=== PATIENT | male | born 1975 | race African-American/Black ===

== ENCOUNTER → 2017-12-24 | Outpatient (REF) | payer OTHER ==
[2017-12-24 19:49] LABS: BACTERIA, URINE AUTO NEGATIVE (NEGATIVE); MUCUS, URINE SMALL (NEGATIVE); RBC, URINE AUTO 1 /HPF (0-3); SQUAMOUS EPITHELIAL CELL UR AU 0 /HPF (0-6); WBC, URINE AUTO 0 /HPF (0-3)
== END ==
LOC: M SMT 17:03
DX: N52.9 Male erectile dysfunction, unspecified (principal)
CPT/HCPCS: 81015

== ENCOUNTER → 2018-05-31 | Outpatient (REF) | payer OTHER | LOC: M SMT 13:13 | PROVIDERS: ATTEND Urology | DX: Z30.2 Encounter for sterilization (principal) ==

== ENCOUNTER → 2022-01-04 | Outpatient (REF) | LOC: M PLAIMG 15:22 | PROVIDERS: ATTEND Internal Medicine | DX: M25.561 Pain in right knee (principal); M51.36 Other intervertebral disc degeneration, lumbar region ==